=== PATIENT | female | born 1965 | race Caucasian/White ===

== ENCOUNTER 2016-10-04 23:04 | Emergency (ER) | payer SELFPAY ==
[~2016-10-04] VITALS: Ht 175.3 cm; Wt 56.8 kg
[2016-10-04] MEDS ORDERED: DEPAKOTE500 MG PO (23:30)
[2016-10-04] MEDS ORDERED: PROTONIX40 M2 PO (23:30)
[2016-10-04] MEDS ORDERED: TYLENOL325 MG PO (23:31)
[2016-10-04] MEDS ORDERED: TYLENOL PM PO (23:33)
[2016-10-05 01:05] LABS: HEMATOCRIT 37.3 % (37.0-47.0); HEMOGLOBIN 12.1 g/dl (12.0-16.0); IMMATURE GRANULOCYTES 0.3 % (0.0-1.0); MEAN CORPUSCULAR HGB 30.2 pG CALC (26.0-32.0); MEAN CORPUSCULAR HGB CONC 32.4 g/L CALC (32.0-36.0); NEUT# 6.61 thou/uL (2.00-7.15); RED BLOOD COUNT 4.01 mill/uL (4.20-5.60); RED CELL DISTRI WIDTH 13.2 % (11.5-15.5)
[2016-10-05 01:13] LABS: ALBUMIN 4.6 g/dL (3.2-5.0); ALKALINE PHOSPHATASE 93 u/l (38-126); AMYLASE 82 u/l (30-110); ANION GAP 22 (6-22 (CALC)); BILIRUBIN, TOTAL 0.5 mg/dL (0.0-1.4); BUN 9 mg/dL (7-17); BUN/CREATININE RATIO 11 (12-20 (CALC)); CARBON DIOXIDE 23 mmol/l (22-30); CHLORIDE 104 mmol/l (95-108); CREATININE 0.8 mg/dL (0.5-1.0); GFR > 60 ML/MIN (>=60 (CALC)); GFR FOR AFR.AMER. > 60 ML/MIN (>=60 (CALC)); GLUCOSE 88 mg/dL (65-105); LIPASE 103 u/l (23-300); SGOT/AST 46 u/l (14-36); SGPT/ALT 27 u/l (9-52); SODIUM 146 mmol/l (137-146); TOTAL PROTEIN 7.9 g/dL (6.3-8.2)
[2016-10-05 01:24] LABS: MYOGLOBIN 49 ng/mL (0 - 62)
[2016-10-05 02:01] LABS: URINE BILIRUBIN - DIPSTICK NEGATIVE (NEGATIVE); URINE BLOOD DIPSTICK NEGATIVE (NEGATIVE); URINE CLARITY CLEAR; URINE COLOR YELLOW; URINE GLUCOSE - DIPSTICK NEGATIVE (NEGATIVE); URINE KETONE NEGATIVE (NEGATIVE); URINE LEUK ESTERASE NEGATIVE (NEGATIVE); URINE NITRITE - DIPSTICK NEGATIVE (Negative); URINE PROTEIN - DIPSTICK NEGATIVE (NEG-TRACE); URINE SPECIFIC GRAVITY <=1.005; URINE UROBILINOGEN - DIPSTICK 0.2 E.U./dL (0.2)
[2016-10-05 02:36] LABS: BARBITURATES NEGATIVE (NEGATIVE); COCAINE NEGATIVE (NEGATIVE); METHADONE NEGATIVE (NEGATIVE); OXCYCODONE NEGATIVE (NEGATIVE); TETRAHYDROCANNABIONOL NEGATIVE (NEGATIVE); TRICYLIC ANTIDEPRESSANTS NEGATIVE (NEGATIVE)
[2016-10-05 06:45] VITALS: BP 163/79
== END 2016-10-05 06:50 | disposition short-term general hospital (02) | DRG 93 ==
LOC: ED 23:04
PROVIDERS: Emergency Medicine
DX: R27.0 Ataxia, unspecified (principal); F10.129 Alcohol abuse with intoxication, unspecified; R41.82 Altered mental status, unspecified; R11.2 Nausea with vomiting, unspecified; F13.90 Sedative, hypnotic, or anxiolytic use, unspecified, uncomplicated; Z93.3 Colostomy status
CPT/HCPCS: S0164